=== PATIENT | male | born 1975 | race Hispanic/Latino ===

== ENCOUNTER 2024-10-21 08:42 | Emergency (ER) | payer OTHER ==
[~2024-10-21] VITALS: Ht 154.9 cm; Wt 77.8 kg
[2024-10-21] MEDS ORDERED: LISINOPRIL10 MG PO (09:09)
[2024-10-21] MEDS: ACETAMINOPHEN 325 MG TAB PO ONE (09:24)
[2024-10-21] MEDS: SODIUM CHLORIDE 0.9% 1000ML 1,000 ML IV ONE ×2 (09:54→11:18)
[2024-10-21] MEDS: KETOROLAC TROMETHAMINE 30 MG/ML VIAL IV STA (09:54)
[2024-10-21] MEDS ORDERED: TAMIFLU75 MG PO (11:40)
[2024-10-21 12:00] VITALS: PULSE 112; RESP 18; TEMP 99.6; O2SAT 97
== END 2024-10-21 12:00 | disposition home or self-care (01) ==
LOC: FSED 08:45
DX: R05.9 Cough, unspecified (principal); J10.1 Influenza due to other identified influenza virus with other respiratory manifestations; R09.89 Other specified symptoms and signs involving the circulatory and respiratory systems; R51.9 Headache, unspecified; I10 Essential (primary) hypertension; Z11.52 Encounter for screening for COVID-19
CPT/HCPCS: 0223U; 71046; 83518; 83605; 87040; 87205; 87400; 96374; 99284; J0696; J1885; J7030